=== PATIENT | female | born 1980 | race Caucasian/White ===

== ENCOUNTER → 2016-09-03 | Outpatient (REF) | payer OTHER, BC | LOC: M SFHCLERA 14:13 | PROVIDERS: ATTEND Nurse Practitioner Family | DX: M54.5 Low back pain (principal) ==

== ENCOUNTER → 2017-04-24 | Outpatient (REF) | payer OTHER, BC | LOC: M SFHCLERA 10:36 | DX: L29.8 Other pruritus (principal); R30.0 Dysuria ==

== ENCOUNTER → 2018-01-20 | Outpatient (REF) | payer OTHER, BC ==
[2018-01-23 14:47] LABS: HPV HYBRID CAPTURE II Negative (Negative)
== END ==
LOC: M SFHCWAGY 10:43
DX: Z12.4 Encounter for screening for malignant neoplasm of cervix (principal)

== ENCOUNTER → 2018-10-20 | Outpatient (REF) | payer OTHER, BC ==
[2018-10-20 13:40] LABS: HEMATOCRIT 43.6 % (36.0-47.0); HEMOGLOBIN 14.2 g/dl (12.0-15.5); MEAN CORPUSCULAR HEMOGLOBIN 29.6 pg (27.0-33.0); MEAN CORPUSCULAR HGB CONC 32.6 g/dl (32.0-36.5); PLATELET COUNT, AUTOMATED 314 10^3/uL (150-450); RED BLOOD COUNT 4.79 10^6/uL (4.00-5.40); WHITE BLOOD COUNT 9.6 10^3/uL (4.0-10.0)
[2018-10-20 14:02] LABS: ALBUMIN 3.3 GM/DL (3.2-5.2); ALT/SGPT 32 U/L (12-78); BILIRUBIN,TOTAL 0.4 MG/DL (0.2-1.0); BLOOD UREA NITROGEN 16 MG/DL (7-18); CALCIUM LEVEL 8.7 MG/DL (8.5-10.1); CARBON DIOXIDE LEVEL 28 MEQ/L (21-32); CHLORIDE LEVEL 105 MEQ/L (98-107); CHOLESTEROL LEVEL 212 MG/DL (<200); CREATININE FOR GFR 0.71 MG/DL (0.55-1.30); GLOMERULAR FILTRATION RATE > 60.0 (>60); GLUCOSE, FASTING 93 MG/DL (70-100); HDL CHOLESTEROL 53 MG/DL (>40); LDL CHOLESTEROL 129 MG/DL (<100); NON-HDL-C 159 MG/DL; POTASSIUM SERUM 4.7 MEQ/L (3.5-5.1); SODIUM LEVEL 138 MEQ/L (136-145); TOTAL PROTEIN 7.2 GM/DL (6.4-8.2); TRIGLYCERIDES LEVEL 148 MG/DL (<150)
[2018-10-20 14:03] LABS: HEMOGLOBIN A1c 5.8 %
== END ==
LOC: M LAB REF 13:14
PROVIDERS: ATTEND Physician Assistant
DX: E78.2 Mixed hyperlipidemia (principal); E66.09 Other obesity due to excess calories; F41.1 Generalized anxiety disorder; R73.01 Impaired fasting glucose

== ENCOUNTER 2019-03-05 06:09 | Day surgery (SDC) | payer OTHER, BC ==
[~2019-03-05] VITALS: Ht 157.5 cm; Wt 115.7 kg
[~2019-03-05 06:09] MED LIST: ACIP1TAB PO; CEPH25SS PO; PEPC1TAB5 PO
[2019-03-05] MEDS ORDERED: BUPIVACAINE HCL 0.25% 30 ML VIAL As Ordered ONE (06:55)
[2019-03-05] MEDS ORDERED: LR 1,000 ML IV ONE (07:00)
[2019-03-05] MEDS ORDERED: ROCURONIUM BROMIDE 50 MG/5 ML VIAL As Ordered ONE (07:50)
[2019-03-05] MEDS ORDERED: MIDAZOLAM INJ 2 MG/2 ML VIAL (J2250) As Ordered ONE (07:50)
[2019-03-05] MEDS ORDERED: LIDOCAINE 2% INJ 100 MG/5 ML SDV (FOR ANES.) As Ordered ONE (07:50)
[2019-03-05] MEDS ORDERED: PROPOFOL 200 MG/20 ML VIAL As Ordered ONE (07:50)
[2019-03-05] MEDS ORDERED: dexameTHASONE 4 MG/ML 1ML VIAL (J1100) As Ordered ONE (07:50)
[2019-03-05] MEDS ORDERED: fentaNYL 250 MCG/5 ML INJECTION (J3010) As Ordered ONE (07:50)
[2019-03-05] MEDS ORDERED: LevoFLOXacin(LEVAQUIN)500 MG/100 ML BAG (J1956) As Ordered ONE (08:00)
[2019-03-05] MEDS ORDERED: ONDANSETRON 4MG/2ML VIAL (J2405) As Ordered ONE ×2 (08:09→09:37)
[2019-03-05] MEDS ORDERED: KETOROLAC 60 MG/2 ML VIAL (J1885) As Ordered ONE (08:09)
[2019-03-05] MEDS ORDERED: SUGAMMADEX SODIUM 500 MG/5 ML VIAL (BRIDION) As Ordered ONE (08:09)
[2019-03-05] MEDS ORDERED: PERCOCET 5MG/325MG TAB PO PRN (09:45)
[2019-03-05] MEDS ORDERED: fentaNYL 100 MCG/2 ML INJECTION (J3010) IV PRN (09:45)
[2019-03-05] MEDS ORDERED: LR 1,000 ML IV SCH (09:45)
[2019-03-05] MEDS ORDERED: ONDANSETRON 4MG/2ML VIAL (J2405) IV PRN (09:45)
[2019-03-05] MEDS ORDERED: IBUPROFEN 600 MG TAB PO PRN (09:45)
[2019-03-05] MEDS ORDERED: NORCO, ANEXSIA 5/325MG TABLET (HYDROcodone/ACETAMINOPHEN) PO PRN (09:45)
[2019-03-05] MEDS ORDERED: METOCLOPRAMIDE INJ 10MG/2ML VIAL (J2765) IV PRN (09:45)
[2019-03-05] MEDS ORDERED: ACETAMINOPHEN TAB 650MG DOSE (2X325MG) PO PRN (09:45)
[2019-03-05] MEDS ORDERED: HYDR-4571 PO (11:06)
[2019-03-05 11:15] VITALS: BP 111/74
--- NOTE | 2019-03-06 07:58 | RO ---
DATE OF PROCEDURE: 03/05/2019 PREOPERATIVE DIAGNOSIS: Symptomatic gallstones. POSTOPERATIVE DIAGNOSIS: Symptomatic gallstones. PROCEDURE PERFORMED: Laparoscopic cholecystectomy. SURGEON: Dr. Shubham Moseley ANESTHESIA: General. INDICATIONS FOR PROCEDURE: The patient is a 38-year-old woman who has had several recent attacks of upper abdominal pain. Gallbladder ultrasound revealed cholelithiasis. She is now for a laparoscopic cholecystectomy. DESCRIPTION OF PROCEDURE: The patient was brought to the operating room and placed on the table in a supine position. She was placed under general endotracheal anesthesia. The patient's abdomen was prepped and draped in a sterile fashion. 0.25% Marcaine was infiltrated at each of the trocar sites as needed. A short supraumbilical midline incision was made. A Veress needle was inserted and after a positive hanging drop test, the abdomen was insufflated with carbon dioxide gas. Once the abdomen was insufflated, an A 11-mm port was placed over a 5 mm scope and inserted through the abdominal wall without difficulty. The scope was inserted and initial examination showed a normal appearing liver. A portion of the stomach was seen and appeared normal. The small and large bowel were covered by omentum. The fundus of the gallbladder was seen and appeared somewhat thickened and pale. The patient was tilted to a reverse Trendelenburg position and rolled slightly to the left. Three 5 mm trocars were placed across the upper abdomen with two on the right and one on the left. Graspers were inserted and the gallbladder fundus was grasped and elevated. Dissection began at the gallbladder neck. The patient was found to have one large stone clearly filling the distal body and neck of the gallbladder. Dissection around the gallbladder neck yielded the cystic duct and the cholecystic artery. Both structures were doubly clipped with hemoclips and divided. The gallbladder was then dissected free from the gallbladder bed using cautery dissection. The gallbladder was not perforated. The gallbladder was placed in an Endopouch. The right upper quadrant was irrigated and inspected. There was no evidence of any bleeding or bile leak. The patient was returned to a flat position. The abdomen was deflated, and the trocars were removed. The gallbladder was delivered through the supraumbilical site. Because of the very large stone, it was necessary to extend the skin and fascial incision slightly. The fascia was then closed with interrupted simple sutures of #0 Vicryl. The skin incisions were all closed with buried #4-0 Vicryl and some additional 0.25% Marcaine was infiltrated around the supraumbilical site. Light dressings were applied. The patient tolerated the procedure well without apparent complication. She was awakened in the operating room, extubated and moved to the recovery room in stable condition. EDGAR
== END 2019-03-05 11:27 | disposition home or self-care (01) ==
LOC: M SDC 06:09
PROVIDERS: ATTEND Surgery
DX: K80.10 Calculus of gallbladder with chronic cholecystitis without obstruction (principal); R73.09 Other abnormal glucose; Z91.040 Latex allergy status; J45.909 Unspecified asthma, uncomplicated; F41.9 Anxiety disorder, unspecified; Z79.899 Other long term (current) drug therapy
CPT/HCPCS: 47562; 81025; 88304; J1100; J1885; J2250; J2405; J2765; J3010

== ENCOUNTER → 2020-04-17 | Outpatient (REF) | payer OTHER, BC ==
[~2020-04-17] MED LIST changes: +HYDR-4571 PO
== END ==
LOC: M SFHCWAGY 12:20
PROVIDERS: ATTEND Nurse Practitioner Family
DX: Z12.4 Encounter for screening for malignant neoplasm of cervix (principal)

== ENCOUNTER → 2021-06-01 | Outpatient (REF) | payer OTHER, BC | LOC: M SFHCWAGY 12:51 | PROVIDERS: ATTEND Advanced Practice Midwife | DX: R10.2 Pelvic and perineal pain (principal) ==

== ENCOUNTER → 2022-11-21 | Outpatient (CLI) | payer BC ==
[2022-11-21 16:45] LABS: BASO # 0.1 10^3/uL (0.0-0.2); BASO % 0.4 % (0.0-1.0); EOS # 0.2 10^3/uL (0.0-0.5); EOS % 2.1 % (0.0-3.0); HEMATOCRIT 41.6 % (36.0-47.0); LYMPH # 2.6 10^3/uL (1.5-5.0); LYMPH % 22.9 % (24.0-44.0); MEAN CORPUSCULAR HEMOGLOBIN 27.8 pg (27.0-33.0); MEAN CORPUSCULAR HGB CONC 31.3 g/dl (32.0-36.5); MEAN CORPUSCULAR VOLUME 89.1 fl (80.0-96.0); MONO # 0.7 10^3/uL (0.0-0.8); MONO % 6.6 % (2.0-8.0); NEUTROPHILS # 7.5 10^3/uL (1.5-8.5); NEUTROPHILS % 67.5 % (36.0-66.0); RED BLOOD COUNT 4.67 10^6/uL (4.00-5.40); WHITE BLOOD COUNT 11.1 10^3/uL (4.0-10.0)
[2022-11-21 16:58] LABS: HEMOGLOBIN A1c 5.4 % (4.0-6.0)
[2022-11-21 17:21] LABS: ALBUMIN 3.1 G/DL (3.2-5.2); ALKALINE PHOSPHATASE 100 U/L (46-116); ALT/SGPT 25 U/L (7.0-40); AST/SGOT 14 U/L (<34); BILIRUBIN,TOTAL 0.4 MG/DL (0.3-1.2); BLOOD UREA NITROGEN 12 MG/DL (9-23); CALCIUM LEVEL 8.9 MG/DL (8.5-10.1); CARBON DIOXIDE LEVEL 28 MMOL/L (20-31); CHLORIDE LEVEL 107 MMOL/L (98-107); CHOLESTEROL LEVEL 179 MG/DL (<200); CREATININE FOR GFR 0.62 MG/DL (0.55-1.30); GLOMERULAR FILTRATION RATE > 60.0 (>58); GLUCOSE, FASTING 103 MG/DL (60-100); HDL CHOLESTEROL 52.6 MG/DL (>40); NON-HDL-C 126.4 MG/DL; POTASSIUM SERUM 4.3 MMOL/L (3.5-5.1); SODIUM LEVEL 140 MMOL/L (136-145); THYROID STIMULATING HORMONE 2.047 uIU/ML (0.55-4.78); TOTAL PROTEIN 6.7 G/DL (5.7-8.2); TRIGLYCERIDES LEVEL 77 MG/DL (<150)
== END ==
LOC: M WUC 10:20
PROVIDERS: ATTEND Physician Assistant
DX: R73.01 Impaired fasting glucose (principal); E78.2 Mixed hyperlipidemia

== ENCOUNTER 2024-05-07 10:14 | Outpatient (CLI) | payer BC ==
[~2024-05-07] VITALS: Ht 157.5 cm; Wt 63.3 kg
[~2024-05-07 10:14] MED LIST changes: -ACIP1TAB PO; +RABE20TA88 PO
[2024-05-07 10:20] VITALS: BP 126/84; O2SAT 100
[2024-05-07] MEDS ORDERED: ACETAMINOPHEN 325 MG TAB PO PRN (10:30)
[2024-05-07] MEDS ORDERED: ONDANSETRON 4MG TAB PO PRN (10:30)
[2024-05-07] MEDS: NS (Normal Saline) 0.9% 1,000 ML IV SCH (10:40)
[2024-05-07 10:43] LABS: HEMOGLOBIN 14.8 g/dl (12.0-15.5); MEAN CORPUSCULAR HEMOGLOBIN 28.5 pg (27.0-33.0); MEAN CORPUSCULAR HGB CONC 32.9 g/dl (32.0-36.5); MEAN CORPUSCULAR VOLUME 86.7 fl (80.0-96.0); PLATELET COUNT, AUTOMATED 186 10^3/uL (150-450); RED BLOOD COUNT 5.19 10^6/uL (4.00-5.40); WHITE BLOOD COUNT 7.4 10^3/uL (4.0-10.0)
[2024-05-07] MEDS: FAMOTIDINE 20 MG TAB PO ONE (10:53)
[2024-05-07 11:03] LABS: BLOOD UREA NITROGEN 10 MG/DL (9-23); CALCIUM LEVEL 8.9 MG/DL (8.5-10.1); CARBON DIOXIDE LEVEL 24 MMOL/L (20-31); CHLORIDE LEVEL 105 MMOL/L (98-107); CREATININE FOR GFR 0.57 MG/DL (0.55-1.30); GLOMERULAR FILTRATION RATE > 60.0 (>58); GLUCOSE, FASTING 88 MG/DL (60-100); POTASSIUM SERUM 3.3 MMOL/L (3.5-5.1); SODIUM LEVEL 144 MMOL/L (136-145)
[2024-05-07] MEDS: MULTIVITAMIN -ADULT INJECTION 10 ML, FOLIC ACID 1 MG, THIAMINE INJection 100 MG, MAGNES... IV ONE (13:48)
[2024-05-07 16:00] VITALS: BP 136/79; O2SAT 100
== END 2024-05-07 16:00 ==
LOC: M INFU 10:14
PROVIDERS: ATTEND Physician Assistant Surgical
DX: E86.0 Dehydration (principal); Z91.040 Latex allergy status
CPT/HCPCS: 36592; 80048; 85027; 96361; 96365; 96366; 96375; J3411; J3475

== ENCOUNTER → 2024-12-02 | Outpatient (REF) | payer BC ==
[2024-12-04 17:13] LABS: HPV APTIMA Not Detected (Not Detected)
== END ==
LOC: M PLALAB 09:20
PROVIDERS: ATTEND Advanced Practice Midwife
DX: Z12.4 Encounter for screening for malignant neoplasm of cervix (principal)
CPT/HCPCS: 87624; G0123